=== PATIENT | male | born 1975 | race Two or more races ===

== ENCOUNTER 2020-11-18 04:04 | Emergency (ER) | payer SELFPAY ==
[~2020-11-18] VITALS: Ht 190.5 cm; Wt 100.0 kg
[2020-11-18] MEDS ORDERED: LORAZEPAM 1MG TABLET PO ONE (06:00)
[2020-11-18 06:29] LABS: BASOPHILS % 0.8 % (0.0-2.0); EOSINOPHILS % 1.2 % (0.0-5.0); HEMATOCRIT. 44.9 % (42.0-52.0); HEMOGLOBIN. 15.2 g/dL (14.0-18.0); LYMPHOCYTES % 20.6 % (20.0-50.0); MEAN CORPUSCULAR HEMOGLOBIN 34.1 pg (28.0-32.0); MEAN CORPUSCULAR VOLUME 100.4 fL (80.0-94.0); MEAN PLATELET VOLUME 8.4 fl (7.4-10.4); NEUTROPHILS % 69.4 % (40.0-76.0); PLATELET 119 x1000/uL (130-400); RED BLOOD CELL COUNT 4.48 mill/uL (4.7-6.1); RED CELL DISTRIBUTION WIDTH 15.7 % (11.6-14.6)
[2020-11-18 06:35] LABS: CHLORIDE 104 mEq/L (98-107)
[2020-11-18 06:40] LABS: ETHANOL BLOOD 158 mg/dL
[2020-11-18 08:53] LABS: CLARITY URINE CLEAR (CLEAR); COLOR URINE YELLOW (YELLOW); KETONES URINE TRACE (NEGATIVE); LEUKOCYTE ESTERASE URINE NEGATIVE (NEGATIVE); NITRITE URINE NEGATIVE (NEGATIVE); OCCULT BLOOD URINE 1+ (NEGATIVE); PROTEIN URINE 3+ (NEGATIVE); SPECIFIC GRAVITY URINE 1.025 (1.005-1.030)
[2020-11-18 09:15] VITALS: BP 167/101
[2020-11-18 09:20] LABS: *AMPHETAMINES SCREEN URINE NEGATIVE (NEGATIVE); *BARBITURATES SCREEN URINE NEGATIVE (NEGATIVE); *BENZODIAZEPINES SCREEN URINE NEGATIVE (NEGATIVE); *COCAINE SCREEN URINE NEGATIVE (NEGATIVE); CANNABINOID URINE SCREEN NEGATIVE (NEGATIVE); METHADONE URINE SCREEN NEGATIVE (NEGATIVE); PHENCYCLIDINE URINE SCREEN NEGATIVE (NEGATIVE)
[2020-11-18 09:21] LABS: OPIATES URINE SCREEN NEGATIVE (NEGATIVE)
[2020-11-18] MEDS ORDERED: L25 GT (09:37)
== END 2020-11-18 09:53 | disposition home or self-care (01) ==
LOC: ER 04:04
DX: F10.239 Alcohol dependence with withdrawal, unspecified (principal); R31.29 Other microscopic hematuria; K76.0 Fatty (change of) liver, not elsewhere classified; R51.9 Headache, unspecified; Z98.890 Other specified postprocedural states; Z79.899 Other long term (current) drug therapy; Y90.6 Blood alcohol level of 120-199 mg/100 ml
CPT/HCPCS: 36415; 71045; 80053; 80305; 80320; 81003; 83880; 84484; 85025; 93005; 99285; G0480

== ENCOUNTER 2020-12-04 04:55 | Emergency (ER) | payer SELFPAY ==
[~2020-12-04] VITALS: Ht 185.4 cm; Wt 100.0 kg
[~2020-12-04 04:55] MED LIST: L25 GT
[2020-12-04 06:24] LABS: BASOPHILS % 0.7 % (0.0-2.0); EOSINOPHILS % 0.6 % (0.0-5.0); HEMATOCRIT. 47.8 % (42.0-52.0); LYMPHOCYTES % 14.2 % (20.0-50.0); MEAN CORPUSCULAR HEMOGLOBIN 33.9 pg (28.0-32.0); MEAN CORPUSCULAR VOLUME 100.9 fL (80.0-94.0); MEAN PLATELET VOLUME 7.7 fl (7.4-10.4); MONOCYTES % 7.1 % (2.0-8.0); NEUTROPHILS % 77.4 % (40.0-76.0); PLATELET 161 x1000/uL (130-400); RED BLOOD CELL COUNT 4.74 mill/uL (4.7-6.1); RED CELL DISTRIBUTION WIDTH 16.1 % (11.6-14.6)
[2020-12-04 06:28] LABS: CHLORIDE 106 mEq/L (98-107)
[2020-12-04] MEDS ORDERED: KETOROLAC 30MG/ML VIAL IV SCH (06:30)
[2020-12-04] MEDS ORDERED: SODIUM CHLORIDE 0.9% 1,000 ML IV ONE (06:30)
[2020-12-04 06:33] LABS: ETHANOL BLOOD 195 mg/dL
[2020-12-04] MEDS ORDERED: LORAZEPAM 2MG/ML CPJ IV SCH (08:15)
[2020-12-04 08:44] LABS: *BENZODIAZEPINES SCREEN URINE NEGATIVE (NEGATIVE)
[2020-12-04 08:45] LABS: *AMPHETAMINES SCREEN URINE NEGATIVE (NEGATIVE); *BARBITURATES SCREEN URINE NEGATIVE (NEGATIVE); *COCAINE SCREEN URINE NEGATIVE (NEGATIVE); CANNABINOID URINE SCREEN NEGATIVE (NEGATIVE); METHADONE URINE SCREEN NEGATIVE (NEGATIVE); OPIATES URINE SCREEN NEGATIVE (NEGATIVE); PHENCYCLIDINE URINE SCREEN NEGATIVE (NEGATIVE)
[2020-12-04] MEDS ORDERED: LORA-250 MT (11:45)
[2020-12-04 12:30] VITALS: BP 144/89
== END 2020-12-04 12:52 | disposition home or self-care (01) ==
LOC: ER 04:55
DX: R07.89 Other chest pain (principal); F10.10 Alcohol abuse, uncomplicated; Y90.6 Blood alcohol level of 120-199 mg/100 ml; F17.290 Nicotine dependence, other tobacco product, uncomplicated
CPT/HCPCS: 36415; 71045; 78582; 80053; 80305; 80320; 83880; 84484; 85025; 85379; 93005; 96361; 96374; 96375; 99285; A9540; A9558; J1885; J2060; Z7610; G0480

== ENCOUNTER 2023-07-06 03:06 | Emergency (ER) | payer MEDICAID ==
[~2023-07-06] VITALS: Ht 177.8 cm; Wt 90.0 kg
[~2023-07-06 03:06] MED LIST changes: +LORA-250 MT
[2023-07-06 03:09] VITALS: O2SAT 98
[2023-07-06 04:45] VITALS: TEMP 98.5
[2023-07-06] MEDS: HYDROCODONE/ACETAMINOPHEN 5/325MG TABLET PO ONE (07:31)
[2023-07-06] MEDS: TETANUS, DIPHTHERIA, PERTUSSIS VAC/PF 0.5ML (>10YR OLD) IM ONE (08:45)
[2023-07-06] MEDS: IBUPROFEN 400MG TABLET PO ONE (08:45)
[2023-07-06] MEDS: BACITRACIN ZINC OINT UDPKT TOP ONE (08:45)
[2023-07-06] MEDS: AMOXICILLIN/POTASSIUM CLAVULANATE 875/125MG TAB PO ONE (09:44)
[2023-07-06 09:54] LABS: BASOPHILS % 0.9 % (0.0-2.0); EOSINOPHILS % 1.7 % (0.0-5.0); HEMATOCRIT. 41.3 % (42.0-52.0); HEMOGLOBIN. 13.9 g/dL (14.0-18.0); MEAN CORPUSCULAR HEMOGLOBIN 33.3 pg (28.0-32.0); MEAN CORPUSCULAR HGB CONC 33.6 g/dL (31.0-37.0); MEAN CORPUSCULAR VOLUME 99.3 fL (80.0-94.0); MEAN PLATELET VOLUME 8.1 fl (7.4-10.4); MONOCYTES % 9.3 % (2.0-8.0); NEUTROPHILS % 61.1 % (40.0-76.0); PLATELET 169 x1000/uL (130-400); RED BLOOD CELL COUNT 4.16 mill/uL (4.7-6.1); RED CELL DISTRIBUTION WIDTH 16.1 % (11.6-14.6); WHITE BLOOD COUNT 6.4 x1000/uL (4.5-11.0)
[2023-07-06 10:11] LABS: ALANINE AMINOTRANSFERASE 117 IU/L (10-49); ALBUMIN 3.7 g/dL (3.2-4.8); ASPARTATE AMINOTRANSFERASE 128 IU/L (<34); BILIRUBIN TOTAL 0.5 mg/dL (0.1-1.0); CALCIUM 8.5 mg/dL (8.7-10.4); CARBON DIOXIDE 27 mEq/L (21-32); CHLORIDE 107 mEq/L (98-107); CREATININE 0.7 mg/dL (0.6-1.3); ETHANOL BLOOD 234 mg/dL (<10); GLUCOSE 82 mg/dL (70-105); PROTEIN TOTAL 6.9 g/dL (6.0-8.3); SODIUM 143 mEq/L (136-145); UREA NITROGEN BLOOD 14 mg/dL (9-23)
[2023-07-06 10:14] LABS: TROPONIN I HIGH SENSITIVITY < 4 ng/L (3.0-53)
[2023-07-06] MEDS ORDERED: IBUP-2028 MT (10:26)
[2023-07-06] MEDS ORDERED: POLY10DR EACHEYE (10:26)
[2023-07-06] MEDS ORDERED: AMOX1TAB16 MT (10:26)
[2023-07-06] MEDS ORDERED: TOPUD PO (10:26)
[2023-07-06 11:07] VITALS: BP 142/82; PULSE 71; RESP 16
== END 2023-07-06 11:30 | disposition home or self-care (01) ==
LOC: ER 03:11
DX: S01.511A Laceration without foreign body of lip, initial encounter (principal); F10.129 Alcohol abuse with intoxication, unspecified; H10.9 Unspecified conjunctivitis; Y90.7 Blood alcohol level of 200-239 mg/100 ml; W54.0XXA Bitten by dog, initial encounter; Y93.89 Activity, other specified; Y92.89 Other specified places as the place of occurrence of the external cause; Y99.8 Other external cause status
CPT/HCPCS: 80053; 80320; 83880; 83690; 85025; 84484; 36415; 71045; 93005; 12011; 99285; Z7610 ×2; 90715; G0480